=== PATIENT | male | born 1990 | race Caucasian/White ===

== ENCOUNTER 2022-12-09 05:50 | Emergency (ER) | payer SELFPAY ==
[2022-12-09] MEDS ORDERED: Sodium Chloride 0.9% 1,000 ML IV ONE (05:53)
[2022-12-09] MEDS ORDERED: Diphtheria,Pertussis(Acell),Tetanus Vaccine 0.5 ML Syringe IM ONE (05:54)
[2022-12-09 06:22] LABS: CARBON DIOXIDE,CO2 20.2 mmol/L (21.0-32.0); POTASSIUM,K 3.8 mmol/L (3.5-5.1)
== END 2022-12-09 07:10 | disposition home or self-care (01) ==
LOC: MW.ED 05:50
DX: S31.111A Laceration without foreign body of abdominal wall, left upper quadrant without penetration into peritoneal cavity, initial encounter (principal); Z88.5 Allergy status to narcotic agent; Z23 Encounter for immunization; W26.0XXA Contact with knife, initial encounter
CPT/HCPCS: 12001; 36415; 71045; 74177; 80053; 80307; 83690; 83735; 85025; 85610; 85730; 90471; 99284; J7030